=== PATIENT | female | born 1945 | race Caucasian/White ===

== ENCOUNTER → 2020-09-24 | Outpatient (CLI) | payer MEDICARE ==
--- NOTE | 2020-09-24 13:04 | REP ---
INDICATION: TRIPP LEG PAIN COMPARISON: None. TECHNIQUE: Real time johnston scale and Duplex Doppler evaluation of the bilateral lower extremity arterial vasculature using linear high frequency transducer. FINDINGS: Johnston scale and duplex doppler images demonstrate minimal scattered plaquing and intimal thickening bilaterally. There is no focal stenosis in either lower extremity arterial system. There are diffuse biphasic waveforms bilaterally. Peak systolic velocities (cm/sec) Common femoral artery: Right 107; Left 120 Profunda femoris: Right 76; Left 67 SFA (proximal): Right 92; Left 89 SFA (mid): Right 109; Left 82 SFA (distal): Right 71; Left 83 Popliteal artery: Right 63; Left 69 BEAR (prox.): Right 62; Left 101 Tibioperoneal trunk: Right 67; Left 77 HANDHOLE MACHINE OPERATOR (prox.): Right 112; Left 80 HANDHOLE MACHINE OPERATOR (distal): Right 106; Left 88 BEAR (distal): Right 59; Left 78 IMPRESSION: Atheromatous changes with areas of minimal narrowing but no obvious focal occlusion or stenosis. <Electronically signed by Kevin Johnston > 09/24/20 [id number]
--- NOTE | 2020-09-24 13:05 | REP ---
INDICATION: PAIN IN TRIPP LEGS COMPARISON: None. TECHNIQUE: Real time compression and duplex Doppler interrogation of the bilateral lower extremity deep venous system is performed. FINDINGS: Bilaterally, the common femoral, superficial femoral and popliteal veins are fully compressible with transducer pressure and demonstrate normal spontaneous and phasic flow, without evidence of deep venous thrombosis. IMPRESSION: No evidence of deep venous thrombosis of the bilateral lower extremity femoral popliteal venous system. <Electronically signed by Kevin Johnston > 09/24/20 [id number]
== END ==
LOC: M RAD 10:56
PROVIDERS: ATTEND Physician Assistant
DX: M79.604 Pain in right leg (principal); M79.662 Pain in left lower leg